=== PATIENT | female | born 1985 | race African-American/Black ===

== ENCOUNTER 2020-10-08 01:23 | Emergency (ER) | payer BC ==
[~2020-10-08] VITALS: Ht 165.1 cm; Wt 77.1 kg
--- NOTE | 2020-10-08 01:32 | Emergency Room Report ---
History of Present Illness General Chief Complaint: To Be Triaged Source: Patient Present Illness HPI 35-year-old female with past medical history of asthma, anemia, depression, ovarian follicles, sent by primary care doctor for evaluation of right lower extremity discomfort. States she sometimes has episodes where her distal calf "feels hot", usually episodes are 2 min then self resolve. Denies any triggers or recent trauma. Patient was recently on oral contraceptive pill from September 24 - October 01, however recently discontinued it secondary to side effects. Her primary care doctor told her to come to the ER for further evaluation. She denies any history of PE/DVT, recent trauma/immobilization/surgery/sedentary lifestyle, hemoptysis, cough, fever, chills, chest pain, nausea, vomiting, diarrhea. Denies swelling or current pain. Denies taking any meds to alleviate her symptoms. The patient's symptoms were gradual onset, severity was moderate, duration since 3 to 4 days. Quality: Aching Past medical history: Asthma, anemia, depression, ovarian follicles Past surgical history: Denies Smoking: Denies Alcohol use: Denies Drug use: Denies Review of systems: CONST: No fevers or chills, No night sweats PULMONARY: No productive cough, No shortness of breath CARDIAC: No chest pain, No palpitations GI: No vomiting, No diarrhea , No melena_or_BRBPR : No dysuria, No hematuria, No discharge NEURO: No new_focal_weakness_or_numbness, No confusion, No vision changes 14 point Review of Systems is otherwise negative except per HPI Physical Exam: GENERAL: Awake_alert_ nontoxic, no acute distress Spo2 95% on RA -normal EYES: Extraocular muscles are intact. Conjunctivae clear. Lids without swelling ENT: External nose and ear normal_in_appearance. Oropharynx clear. Head_atraumatic, Moist_oral_mucosa NECK: No JVD. No meningismus. No thyromegaly. Supple. Trachea midline RESP: Normal respiratory effort. Symmetric rise. No stridor. Clear_to_auscultation_No_rales_No_wheezes CARDIAC: Regular rate and regular rhytm. No_significant pedal edema. ABDOMEN: Soft. Nondistended. Nontender_No_rebound_or_guarding. MSK: Normal muscle tone, without rigidity. Negative Homans' sign bilaterally. No ankle edema. No pitting edema bilaterally. SKIN: Warm and dry. No visible cyanosis or pallor. No petechiae. No cellulitis NEUROLOGIC: Alert, oriented x3. Motor_and_sensation_grossly_intact. No truncal ataxia. Gait_normal Psych: Normal mood and affect, normal judgment and insight - COORDINATION OF CARE Case was discussed with: Patient Medical Decision Making/Plan: Differential diagnosis includes musculoskeletal spasm, dependent edema, DVT, renal failure, congestive heart failure, arthritis, venous stasis without evidence of: Soft tissue infection such as cellulitis or abscess, compartment syndrome, septic arthritis, arterial occlusion, among others. Patient is afebrile and hemodynamically stable. She complains of right lower extremity (primarily distal leg) pulsating discomfort. DP and PT are +2 in the right lower extremity. Sensation is intact to light touch. There is no Homans' sign. She was sent here specifically to rule out DVT as she was recently taking oral contraceptive pills. Distally the patient has capillary refill <2 seconds and strong pulses. There is no pallor or pain out of proportion to exam. The associated joints have full range of motion without any significant pain or restriction in mobility. There is no crepitus or pain out of proportion to exam and the patient is afebrile and nontoxic. There is no overlying significant redness, induration, tenderness, pus, or evidence of drainable fluid collection. No evidence of septic arthritis, necrotizing fasciitis, or soft tissue infection such as abscess or cellulitis. No trauma, no injury , compartments are soft, the patient is able to bear weight and has no neurologic deficits. No evidence of fracture, dislocation or compartment syndrome at this time. Labs were checked and show no evidence of acute renal failure, congestive heart failure. CBC shows chronic microcytic anemia. Doppler ultrasounds of the R leg show no evidence of DVT on prelim read by [employer]. Official reading pending Patient may have venous stasis versus musculoskeletal pain. No evidence of any emergent cause of patient's symptoms. No symptoms concerning for PE or ACS. Pertinent results reviewed with the patient. I educated the patient on the current treatment plan including the risks, benefits, and alternatives. I also discussed the extent and limitations of the current evaluation. The patient e xpressed understanding and agreement with plan. I recommended PMD follow-up within 1-2 days. Also advised that the patient return to the Emergency Department as soon as possible if they experience any new, persistent, or worsening symptoms. Allergies: Coded Allergies: No Known Allergies (Unverified , 10/08/20) Physical Exam Sp02 EP Interpretation: reviewed, normal Medical Decision Making Diagnostic Impression: Primary Impression: Leg muscle spasm Additional Impression: Microcytic anemia EKG Diagnostic Results Troponin ordered: Yes When was troponin ordered?: Oct 08, 2020 MIGUEL ÁNGEL Ruggiero 12-lead EKG (interpreted by me) Time: 0 149 Indication: Rhythm analysis Tracing visualized and Interpreted by me. Rhythm: Normal sinus rhythm Rate: 68 bpm QTc: 414 Morphology: No_significant_ST_elevations_or_depressions, No STEMI Impression: Normal_sinus_rhythm_without_significant_abnormality. Noncontiguous T wave inversion in lead V3 Rhythm Strip Diag. Results Rhythm Strip Time: 01:53 EP Interpretation: yes Rate: 80 Rhythm: NSR, no PVC's, no ectopy Reevaluation Time: 04:00 Status: improved Disposition: HOME, SELF-CARE Admit Decision Time: 04:30 Condition: Stable Scripts Naproxen* (NAPROXEN*) 500 Mg Tablet. 500 MG ORAL TWICE A DAY for 10 Days, #20 TAB Prov: Nahomy Garcia D.O. 10/08/20 Patient Instructions: Iron Deficiency Anemia, Adult, [id number], Leg Cramps Additional Instructions: Instructions for patient/support team assoc: Follow up with your physician in 1-2 days. Follow-up with your doctor sooner if your condition requires a more timely clinical reevaluation. Return to the emergency department immediately if you feel that your condition is worsening or if you have any new or concerning symptoms. Review your discharge instructions and take any prescriptions given as instruc noel. [facility] PROVIDES FREE OR LOW-COST HEALTH SERVICES TO PEOPLE WHO CAN SHOW PROOF THAT THEY LIVE IN [facility]. TO FIND MORE CLINICS PARTNERED WITH [facility] TO PROVIDE SERVICE, PLEASE CALL . Nahomy Garcia D.O. Oct 08, 2020 01:32
--- NOTE | 2020-10-08 01:43 | NUR ---
ED Nurse Note: pt from home came in with c/o of inflammation to the right leg no swelling, "just feels warm", concerened about possible blod clot due to her discontinuing a medication, hx of asthma, anemia, depression, and ovarian fibroids, pt is AOx4, ambulatory, vitals aare stable no current complaints of pain
--- NOTE | 2020-10-08 01:49 | NUR ---
Pte came to ER ambulatory c/o right leg swelling and pain for 7 days , pte refers she was taken oral contraceptives pills and she stoped and after that the symptoms begun .
[2020-10-08 03:11] LABS: HEMATOCRIT 37.4 % (37.0-47.0); HEMOGLOBIN 10.8 G/DL (12.0-16.0); MEAN CORPUSCULAR VOLUME 74 FL (80-99); PLATELET COUNT 220 K/UL (150-450); RED BLOOD COUNT 5.04 M/UL (4.20-5.40); RED CELL DISTRIBUTION WIDTH 24.2 % (11.6-14.8); WHITE BLOOD COUNT 4.9 K/UL (4.8-10.8)
[2020-10-08 03:27] LABS: ANION GAP 8 mmol/L (5-15); BLOOD UREA NITROGEN 11 mg/dL (7-18); CARBON DIOXIDE 28 MMOL/L (21-32); CHLORIDE 103 MMOL/L (98-107); CREATININE 0.8 MG/DL (0.55-1.30); POTASSIUM 3.7 MMOL/L (3.5-5.1); SODIUM 139 MMOL/L (136-145)
[2020-10-08 03:37] LABS: ALANINE AMINOTRANSFERASE 23 U/L (12-78); ALBUMIN 3.8 G/DL (3.4-5.0); ALBUMIN/GLOBULIN RATIO 0.9 (1.0-2.7); ALKALINE PHOSPHATASE 57 U/L (46-116); ASPARTATE AMINO TRANSFERASE 21 U/L (15-37); BILIRUBIN,TOTAL 0.2 MG/DL (0.2-1.0)
--- NOTE | 2020-10-08 03:37 | NUR ---
Patient in bed in comfortable position and stable condition. All vitals signs were taken within normal range. Urine and blood were collected and sent them to the lab. Patient continuous attached to the monitor.
[2020-10-08] MEDS ORDERED: NAPROXEN500 M1 ORAL (03:47)
[2020-10-08 04:15] VITALS: BP 130/89
--- NOTE | 2020-10-08 04:17 | NUR ---
Patient was discharge home as EDP ordered. All vital signs were taken within normal range. Patient . All prescriptions and instructions were given to the patient . Patient verbalized understanding. patient left the hospital in stable condition .
--- NOTE | 2020-10-09 07:51 | Diagnostic Imaging Report ---
EXAM: US Duplex Right Lower Extremity Veins CLINICAL HISTORY: DVT TECHNIQUE: Real-time duplex ultrasound scan of the right lower extremity veins integrating B-mode two-dimensional vascular structure, Doppler spectral analysis, color flow Doppler imaging and compression. COMPARISON: No relevant prior studies available. FINDINGS: Deep veins: Unremarkable. No DVT in the visualized common femoral, femoral, proximal deep femoral or popliteal veins. The veins demonstrate normal color flow, are normally compressible, with normal phasic flow and/or augmentation response. Superficial veins: Unremarkable. No thrombus in the visualized great saphenous vein. Soft tissues: No acute findings. No popliteal cyst. IMPRESSION: Normal right lower extremity duplex venous ultrasound.
== END 2020-10-08 04:20 | disposition home or self-care (01) ==
LOC: EMR 01:39
DX: M62.838 Other muscle spasm (principal); D50.9 Iron deficiency anemia, unspecified; F32.9 Major depressive disorder, single episode, unspecified
CPT/HCPCS: 36415; 80053; 83880; 84484; 84702; 85025; 85610; 85730; 93005; 93971; 99284